=== PATIENT | female | born 1945 | race Caucasian/White ===

== ENCOUNTER → 2021-09-02 | Outpatient (CLI) | payer MEDICARE ==
[~2021-09-02] MED LIST: ACET650T61 PO; MULTCAP PO; PANT40TA29 PO; THERTAB52 PO; VITAD400CA PO
== END ==
LOC: M LABSMTC 10:24
PROVIDERS: ATTEND Anesthesiology
DX: Z20.828 Contact with and (suspected) exposure to other viral communicable diseases (principal); Z11.52 Encounter for screening for COVID-19

== ENCOUNTER → 2021-09-02 | Outpatient (CLI) | payer MEDICARE ==
--- NOTE | 2021-09-04 19:02 | ECGEPIP ---
[facility] Test Date: 2021-09-02 Pat Name: CARITO CUI Department: Room: - Gender: Female [employer]isher: mitzi : 1945 Requested By: Reji Mendez Order Number: [id number] Reading MD: Raudel Julien Measurements Intervals [place] Rate: 81 P: 72 IA: 178 QRS: 28 QRSD: 82 T: 35 QT: 372 QTc: 432 Interpretive Statements Normal sinus rhythm Nonspecific T wave abnormality Baseline artifact Comparison tracing not on file Electronically Signed on 09-04-2021 19:02:02 EDT by Raudel Julien
== END ==
LOC: M EKG 10:48
PROVIDERS: ATTEND Anesthesiology
DX: E04.1 Nontoxic single thyroid nodule (principal); Z20.828 Contact with and (suspected) exposure to other viral communicable diseases; Z11.52 Encounter for screening for COVID-19
CPT/HCPCS: 93005; U0003

== ENCOUNTER 2021-09-07 09:38 | Day surgery (SDC) | payer MEDICARE ==
[~2021-09-07] VITALS: Ht 167.6 cm; Wt 71.2 kg
[~2021-09-07 09:38] MED LIST changes: +LR 1,000 ML IV ONE
[2021-09-07] MEDS ORDERED: EPINEPHrine INJ 1 MG/ML 1ML AMP As Ordered ONE (12:02)
[2021-09-07] MEDS ORDERED: METHYLENE BLUE 0.5% (5MG/ML) 10 ML AMP (PROVAYBLUE) As Ordered ONE (12:03)
[2021-09-07] MEDS ORDERED: LIDOCAINE W/EPINEPHRINE 1% 20ML VIAL As Ordered ONE (12:03)
[2021-09-07] MEDS ORDERED: EPINEPHrine 1MG/ML INJ 30ML MD-VIAL As Ordered ONE ×2 (12:06→12:08)
[2021-09-07] MEDS ORDERED: OXYMETAZOLINE 0.05% NASAL SPRAY (AFRIN) As Ordered ONE (12:08)
[2021-09-07] MEDS ORDERED: SCOPOLAMINE 1MG TRANSDERMAL PATCH TOP SCH (12:30)
[2021-09-07] MEDS ORDERED: fentaNYL 250 MCG/5 ML INJECTION (J3010) As Ordered ONE (13:00)
[2021-09-07] MEDS ORDERED: dexameTHASONE 4 MG/ML 1ML VIAL (J1100 PER 1MG) As Ordered ONE (13:00)
[2021-09-07] MEDS ORDERED: MIDAZOLAM INJ 2MG/2ML VIAL (J2250 PER 1MG) As Ordered ONE (13:00)
[2021-09-07] MEDS ORDERED: ROCURONIUM BROMIDE 50 MG/5 ML VIAL As Ordered ONE (13:00)
[2021-09-07] MEDS ORDERED: PHENYLephrine 500MCG 5ML (100MCG/ML) SYRINGE As Ordered ONE (13:00)
[2021-09-07] MEDS ORDERED: propofoL 200 MG/20 ML VIAL As Ordered ONE (13:00)
[2021-09-07] MEDS ORDERED: ONDANSETRON 4MG/2ML VIAL As Ordered ONE (13:00)
[2021-09-07] MEDS ORDERED: SUGAMMADEX SODIUM 500 MG/5 ML VIAL (BRIDION) As Ordered ONE (13:00)
[2021-09-07] MEDS ORDERED: LIDOCAINE 2% 100MG/5ML SDV (FOR ANES.) As Ordered ONE (13:00)
[2021-09-07] MEDS ORDERED: LACRILUBE (AKWA TEARS) OPHTH OINT 3.5 GM As Ordered ONE (13:34)
[2021-09-07] MEDS ORDERED: ONDANSETRON 4MG/2ML VIAL IV PRN (13:45)
[2021-09-07] MEDS ORDERED: HYDROMORPHONE HCL 0.5 MG/ 0.5 ML SYRINGE (J1170 PER 1) IV PRN (13:45)
[2021-09-07] MEDS ORDERED: oxyCODONE 5MG TAB PO PRN (13:45)
[2021-09-07] MEDS ORDERED: fentaNYL 100 MCG/2 ML INJECTION (J3010) IV PRN (13:45)
[2021-09-07] MEDS ORDERED: LR 1,000 ML IV SCH ×2 (13:45→14:20)
[2021-09-07] MEDS ORDERED: ACETAMINOPH W/CODEINE #3 TAB UD PO PRN (14:20)
[2021-09-07] MEDS ORDERED: METOCLOPRAMIDE INJ 10MG/2ML VIAL (J2765 PER 1) As Ordered ONE (14:34)
[2021-09-07] MEDS ORDERED: METOCLOPRAMIDE INJ 10MG/2ML VIAL (J2765 PER 1) IV PRN (14:45)
[2021-09-07 15:06] VITALS: BP 142/65
--- NOTE | 2021-09-07 16:41 | RO ---
OPERATIVE NOTE DATE OF OPERATION: 09/07/2021 PREOPERATIVE DIAGNOSES: 1. Nasal septal deviation 2. Nasal valve collapse. POSTOPERATIVE DIAGNOSES: 1. Nasal septal deviation. 2. Nasal valve collapse. OPERATIVE PROCEDURES: 1. Nasal valve repair. 2. Septoplasty. SURGEON: Leland Nolen M.D. DESCRIPTION OF PROCEDURE: Under general anesthesia with the patient intubated, the patient was prepped in the usual manner. I infiltrated with lidocaine and epinephrine and used pledgets of adrenaline 1:100,000. I started on the left side. I made an incision anteriorly and elevated the subperichondrial and periosteal plane. I removed a portion of the ethmoid and vomer, which were deviated. Once this was done, the septum was straight, so I closed that with 4-0 chromic suture. I made an incision anterior to the inferior aspect of the nasal bone on both sides and elevated the periosteum. I drilled two holes through the lower aspect of the nasal bone. I put 4-0 Mersiline stitch from the nasal bone down to the lateral aspect of the lower lateral cartilage on both sides. This supported the nasal valve. Once I was done, then I closed the incision with 4-0 Monocryl. I then made an incision anterior to the inferior turbinate and removed a bit of inferior turbinate on both sides and closed that with 4-0 Monocryl. The patient tolerated the procedure well. ESTIMATED BLOOD LOSS: Less than 25 mL estimated blood loss. CONDITION: The patient was extubated and transferred to the recovery room in excellent condition.
== END 2021-09-07 15:30 | disposition home or self-care (01) ==
LOC: M SDC 09:38
PROVIDERS: ATTEND Otolaryngology
DX: J34.2 Deviated nasal septum (principal); M95.0 Acquired deformity of nose; Z91.040 Latex allergy status; K21.9 Gastro-esophageal reflux disease without esophagitis; Z79.899 Other long term (current) drug therapy; F17.218 Nicotine dependence, cigarettes, with other nicotine-induced disorders
CPT/HCPCS: 30465; 30520; J0171; J1100; J2250; J2370; J2405; J2765; J3010; Q9968